=== PATIENT | male | born 1975 | race Caucasian/White ===

== ENCOUNTER 2024-04-27 10:32 | Emergency (ER) | payer BC, SELFPAY ==
[2024-04-27 10:38] VITALS: BP 172/99; PULSE 107; RESP 16; TEMP 36.7; O2SAT 98
--- NOTE | 2024-04-27 10:50 | ED.URI ---
HPI - URI/Sore Throat General Chief Complaint: Upper Respiratory Infection Stated Complaint: Cough Time Seen by Provider: 04/27/24 11:02 Source: patient, RN notes reviewed and old records reviewed Mode of arrival: ambulatory Limitations: no limitations History of Present Illness HPI Narrative: Patient presents with complaints of 3 days of dry hacking cough. Denies any sputum production, but he does state that sometimes he coughs so much she feels as though he might vomit. He is up-to-date on Tdap. His blood pressure and pulse are both noted to be elevated today, this was discussed with patient who denies any headache, dizziness, chest pain, shortness of breath. He does, however, admits to taking Sudafed. He was advised not to the this again. He denies any fever, chills, sweats. He is not in any distress, including respiratory distress Related Data Allergies Allergy/AdvReac Type Severity Reaction Status Date / Time No Known Allergies Allergy Unknown Verified 04/27/24 10:36 Review of Systems Review of Systems: All systems reviewed & are unremarkable except as noted in HPI and below Constitutional: Constitutional: Reports no additional constitutional complaints ENT: Reports system reviewed and no additional complaints, except as documented Cardiovascular: Cardiovascular: Reports no additional cardiovascular complaints Respiratory: Respiratory: Reports no additional respiratory complaints and Reports cough Gastrointestinal: Gastrointestinal: Reports no additional gastrointestinal complaints [facility] Past Medical History Medical History (Updated 04/27/24 @ 11:15 by Jesika Vasques APRN) Ulcerative colitis Surgical History Surgical History H/O colectomy Social History Social History Smoking status: Never smoker Gender identity (if verbalized by the patient): Male Comments At the time of my signature, I reviewed and agree with the nursing past medical, surgical, social, and family history. There is no relevant family history pertinent to the patient complaint. Exam Const: General: cooperative, no acute distress, alert and awake Orientation/consciousness: oriented to person, oriented to place and oriented to time HENMT: Head: normal to inspection Resp: Effort & Inspection: normal respiratory effort and able to speak in complete sentences Auscultation: clear to auscultation bilaterally, no crackles, no rales, no rhonchi and no wheezes Cardio: Palpation: normal PMI Rate: regular rate Rhythm: regular rhythm Heart sounds: S1 normal heart sound present and S2 normal heart sound present Neuro: General: oriented to person, oriented to place and oriented to time Cranial nerves: Yes CN's II-XII intact bilaterally Psych: Appearance: grossly normal Thought process: Normal thought process present Insight: Good insight present (Psych) Judgement: Good judgement present (Psych) Course Course Level of Care: Express Care Visit Vital Signs Vital signs: Vital Signs Temperature 98.0 F 04/27/24 10:38 Pulse Rate 107 H 04/27/24 10:38 Respiratory Rate 16 04/27/24 10:38 Blood Pressure 172/99 H 04/27/24 10:38 Pulse Oximetry 98 04/27/24 10:38 Oxygen Delivery Room Air 04/27/24 10:38 Temperature 98.0 F 04/27/24 10:38 Pulse Rate 107 H 04/27/24 10:38 Respiratory Rate 16 04/27/24 10:38 Blood Pressure 172/99 H 04/27/24 10:38 Pulse Oximetry 98 04/27/24 10:38 Oxygen Delivery Room Air 04/27/24 10:38 Reviewed MDM - URI/Sore Throat MDM Narrative Medical decision making narrative: Negative COVID, negative flu. Patient nontoxic appearing, stable for discharge home with supportive care measures. Blood pressure discussed at length. Patient advised to cease taking Sudafed, contact primary care provider regarding his blood pressure. Emergency department for any new or worse symptoms. Discharge instructions reviewed with patient, as well as provided in writing per nursing staff. The instructions also include specific and strict return/GO TO THE ER as well as f/u information. All questions have been answered, and the patient deny any further questions with discharge and discharge plan. Some parts of this dictation were generated by voice recognition software and may contain typographical and/or grammatical inaccuracies. Differential Diagnosis Differential diagnosis: Likely upper respiratory infection, croup, bronchitis and influenza Medical Records Attestation: I reviewed the patient's medical records. Lab Data Attestation: I reviewed the patient's lab results. Discharge Plan Discharge Clinical Impression: Bronchitis, Elevated blood pressure reading Patient Disposition: Home, Self-Care Condition: Stable Instructions: Antibiotic Form, Acute Bronchitis (ED) Additional Instructions: Do not take pseudoephedrine, as this can elevate your heart rate and blood pressure. Take all medications as prescribed. Follow-up with primary care provider. Emergency department for new or worsening symptoms. Blood pressure very elevated today, please monitor this and discuss with primary care provider. Patient Language: Brazilian Prescriptions: New prednisone 50 mg tablet 50 mg PO DAILY Qty: 5 0RF albuterol sulfate [Ventolin HFA] 90 mcg/actuation HFA aerosol inhaler 2 puff inhalation QID PRN (Reason: shortness of breath or wheezing) Qty: 8.5 0RF benzonatate 200 mg capsule 200 mg PO TID PRN (Reason: cough) Qty: 30 0RF Follow-up/Referrals: Naif,Boris Jensen PA-C [Primary Care Provider] - 1 Week Stand Alone Forms: Work/School Release IP Time of Disposition: 11:16
[2024-04-27 11:08] LABS: EDCOVIDSCREEN Negative (Negative); EDINFLUASCREEN Negative (Negative); EDINFLUBSCREEN Negative (Negative)
== END 2024-04-27 11:20 | disposition home or self-care (01) ==
PROVIDERS: Emergency Provider Nurse Practitioner Family; PCP Physician Assistant
DX: J40 Bronchitis, not specified as acute or chronic (principal); R03.0 Elevated blood-pressure reading, without diagnosis of hypertension; Z20.822 Contact with and (suspected) exposure to COVID-19
CPT/HCPCS: 87426; 87804; 99213; G0463

== ENCOUNTER 2024-05-01 15:52 | Emergency (ER) | payer BC, SELFPAY ==
--- NOTE | ~2024-05-01 | XR_ITS ---
EXAMINATION: XR chest 2V DATE: 05/01/2024 16:32 INDICATION: One week of cough and wheezing TECHNIQUE: PA and lateral views of the chest were obtained. COMPARISON: Chest radiograph dated 03/25/19 FINDINGS: The lungs remain clear with no focal airspace opacities, pulmonary edema, pleural effusion or pneumot horax. The cardiomediastinal silhouette is normal. Visualized bones and soft tissues are unremarkable . IMPRESSION: 1. No acute cardiopulmonary disease. Reviewed, dictated and finalized at location [facility]
[2024-05-01 15:55] VITALS: BP 159/96; PULSE 73; RESP 16; TEMP 36.5; O2SAT 97
--- NOTE | 2024-05-01 16:26 | ED_ITS ---
HPI - URI/Sore Throat General Chief Complaint: Upper Respiratory Infection Stated Complaint: Sinus/Wheezing Time Seen by Provider: 05/01/24 16:19 Source: patient, RN notes reviewed and old records reviewed Mode of arrival: ambulatory Limitations: no limitations History of Present Illness HPI Narrative: Patient presents today complaining of a 7 day history of cough and congestion. Patient was seen here on 04/27/2023, diagnosed with bronchitis and discharged home with a prescription for prednisone, and albuterol inhaler, and benzonatate. Patient states his nasal congestion symptoms have resolved but his cough persists. Reports he started wheezing last night as well. Denies shortness of breath, fever. He has tried some Mucinex DM without relief. States he did not see an improvement in symptoms with the prednisone. Related Data Allergies Allergy/AdvReac Type Severity Reaction Status Date / Time No Known Allergies Allergy Unknown Verified 05/01/24 16:04 Review of Systems Review of Systems: CONSTITUTIONAL: Denies body aches, fever, chills, or sweats. EYES: Denies visual changes, redness, or discharge. ENT: Denies rhinorrhea, congestion, sore throat, or otalgia. CARDIOVASCULAR: Denies chest pain, palpitations, or edema. RESPIRATORY: Denies dyspnea.+ cough, wheezing GASTROINTESTINAL: Denies abdominal pain, nausea, vomiting, or diarrhea. GENITOURINARY: Denies dysuria or hematuria. SKIN: Denies rash, itching, or wounds. MUSCULOSKELETAL: Denies back pain, joint pain, or myalgia. NEUROLOGIC: Denies headache, numbness, tingling, or weakness. PSYCH: Denies depression or anxiety. [facility] Past Medical History Medical History Ulcerative colitis Surgical History Surgical History H/O colectomy Social History Social History Smoking status: Never smoker Gender identity (if verbalized by the patient): Male Comments At time of signature, I have reviewed and agree with nursing past medical, surgical, social and family history unless otherwise noted. Please see nursing chart for further information. There is no relevant family history pertinent to the presenting complaint Exam Narrative: GENERAL: Well-appearing, well-nourished, and in no acute distress. HEAD: Normocephalic, atraumatic. EYES: EOMI. No redness or drainage. Conjunctivae normal. ENT: Mucous membranes pink and moist. Nares clear. No rhinorrhea. TMs normal bilaterally. Throat normal with small amount of white postnasal drainage. Uvula midline. NECK: Normal AROM. Supple. No lymphadenopathy. CHEST: No respiratory distress. Expiratory wheezing in the bilateral upper lobes, otherwise clear HEART: Regular rate and rhythm. No murmur appreciated. EXTREMITIES: Normal range of motion. No edema. SKIN: Warm, dry, no rash. Capillary refill normal. Normal skin turgor. NEURO: No focal deficits. Alert and oriented x3. Gait steady. PSYCH: Normal affect. No signs of depression or anxiety. Course Course Level of Care: Express Care Visit Vital Signs Vital signs: Vital Signs Temperature 97.7 F 05/01/24 15:55 Pulse Rate 73 05/01/24 15:55 Respiratory Rate 16 05/01/24 15:55 Blood Pressure 159/96 H 05/01/24 15:55 Pulse Oximetry 97 05/01/24 15:55 Oxygen Delivery Room Air 05/01/24 15:55 Temperature 97.7 F 05/01/24 15:55 Pulse Rate 73 05/01/24 15:55 Respiratory Rate 16 05/01/24 15:55 Blood Pressure 159/96 H 05/01/24 15:55 Pulse Oximetry 97 05/01/24 15:55 Oxygen Delivery Room Air 05/01/24 15:55 Reviewed MDM - URI/Sore Throat MDM Narrative Medical decision making narrative: Chest x-ray negative. Recommend continuing Mucinex and albuterol inhaler. Patient did not feel improved with prednisone so will not represcribed. Anticipatory guidance given. ED precautions given. Differential Diagnosis Differential diagnosis: Likely upper respiratory infection, sinusitis, viral infection, bronchitis and other (Pneumonia) Imaging Data Radiologist's impression: ITS Impressions Chest X-Ray 05/01/24 16:33 IMPRESSION: 1. No acute cardiopulmonary disease. Critical Care Time Critical Care Time Critical Care Time: No Discharge Plan Discharge Clinical Impression: Bronchitis Patient Disposition: Home, Self-Care Condition: Stable Instructions: Acute Bronchitis (ED) Additional Instructions: Your chest x-ray is negative for pneumonia today. Your symptoms are likely due to a viral illness, which is not treated with antibiotics. Virus symptoms can last for up to 7-10days. Take Tylenol or ibuprofen for pain or fever. Continue the albuterol inhaler if needed. Recommend starting regular Mucinex during the day to help break up any chest congestion. Rest and stay hydrated. Follow up with your PCP in 3-4 days if symptoms are not improving. Go to the ER immediately if you develop worsening wheezing, shortness of breath, difficulty swallowing, or any other concerning symptoms. Your blood pressure was elevated above 120/80 today at Urgent Care. This puts you above the threshold for follow up. Please schedule a followup visit with your personal physician as soon as possible, for further evaluation and treatment. Even blood pressure exceeding 120/80 may indicate pre-hypertension. Patient Language: Turkish Prescriptions: No Action albuterol sulfate [Ventolin HFA] 90 mcg/actuation HFA aerosol inhaler 2 puff inhalation QID PRN (Reason: shortness of breath or wheezing) Qty: 8.5 0RF benzonatate 200 mg capsule 200 mg PO TID PRN (Reason: cough) Qty: 30 0RF Follow-up/Referrals: Naif,Boris Jensen PA-C [Primary Care Provider] - Time of Disposition: 16:53
== END 2024-05-01 16:58 | disposition home or self-care (01) ==
PROVIDERS: Emergency Provider Nurse Practitioner; PCP Physician Assistant
DX: J40 Bronchitis, not specified as acute or chronic (principal); K51.90 Ulcerative colitis, unspecified, without complications; Z90.49 Acquired absence of other specified parts of digestive tract
CPT/HCPCS: 71046; 99213; G0463